=== PATIENT | male | born 2005 | race Two or more races ===

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

== ENCOUNTER 2023-10-04 18:30 | Emergency (ER) | payer MEDICAID | END 2023-10-04 18:45 | disposition left against medical advice (07) | LOC: ER 18:30 | DX: R68.84 Jaw pain (principal); Z53.21 Procedure and treatment not carried out due to patient leaving prior to being seen by health care provider ==

== ENCOUNTER 2024-05-08 20:10 | Emergency (ER) | payer MEDICAID ==
[~2024-05-08] VITALS: Ht 177.8 cm; Wt 185.0 kg
[2024-05-08] MEDS ORDERED: IBU600T PO (20:26)
[2024-05-08] MEDS ORDERED: CYCL-838 PO (20:26)
[2024-05-09 00:28] VITALS: BP 139/82; PULSE 102; RESP 18; TEMP 98.8; O2SAT 98
== END 2024-05-09 00:41 | disposition home or self-care (01) ==
LOC: ER 20:10
DX: S39.012A Strain of muscle, fascia and tendon of lower back, initial encounter (principal); R07.89 Other chest pain; F41.9 Anxiety disorder, unspecified; X58.XXXA Exposure to other specified factors, initial encounter; Y93.89 Activity, other specified; Y92.89 Other specified places as the place of occurrence of the external cause; Y99.8 Other external cause status
CPT/HCPCS: 93005

== ENCOUNTER 2024-08-12 14:34 | Emergency (ER) | payer MEDICAID ==
[~2024-08-12] VITALS: Ht 177.8 cm; Wt 75.0 kg
[~2024-08-12 14:34] MED LIST: CYCL-838 PO; IBU600T PO
[2024-08-12] MEDS: LORazepam 0.5 MG TAB PO ONE ×2 (15:00→23:50)
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
[2024-08-13] MEDS ORDERED: FLUO1TAB14 PO (01:22)
[2024-08-13] MEDS ORDERED: HYDR-3682 PO (01:22)
--- NOTE | 2024-08-13 01:25 | ED.PDOC ---
X-Ray, Labs, Meds, VS Vital Signs Date Time Temp Pulse Resp B/P (MAP) Pulse Ox O2 Delivery O2 Flow Rate FiO2 08/12/24 19:25 99.1 68 18 136/94 (108) 99 99.1 08/12/24 19:20 Room Air* 0 21 08/12/24 15:00 97.9 100 20 128/74 (92) 99 Current Medications Medications (Trade) Dose Ordered Sig/Margarito Route Start Time Stop Time Status Last Admin Lorazepam (Ativan Tablet) 1 mg ONCE ONCE PO 08/12/24 15:00 08/12/24 15:01 DC 08/12/24 15:00 Lorazepam (Ativan Tablet) 2 mg ONCE ONCE PO 08/12/24 23:45 08/12/24 23:46 DC 08/12/24 23:50 Time of 1ST Reevaluation: 17:53 Reevaluation 1ST: Unchanged Time of 2ND Reevaluation: 01:25 Reevaluation 2ND: Improved Patient Education/Counseling: Diagnosis, Treatment, Need For Follow Up Family Education/Counseling: No Family Present Departure 1 Departure Time of Disposition: 01:17 Impression: Primary Impression: Anxiety disorder, unspecified Disposition: 01 HOME / SELF CARE / HOMELESS Condition: Stable Additional Instructions: ED DISCHARGE INSTRUCTIONS Instructions: Please read all instructions provided in this packet carefully. Although you have been discharged from the Emergency Department, this does not mean that you have a "clean bill of health". No definitive diagnosis for your symptoms has been made today. It is possible that you are in the process of developing a serious illness. This is why you must return to the ED without fail if any new or worsening symptoms (especially if your symptoms include thoughts of self harm, severe anxiety, chest pain, trouble breathing, abdominal pain, fever, headache, confusion, trouble seeing, or trouble walking) It is also very important that you see a primary care doctor within the next 3-5 days to follow up. If you are unable to get an appointment, return to the ED for re-evaluation. e-Prescriptions Hydroxyzine Hcl (Hydroxyzine Hcl) 25 Mg Tab 1 TAB PO BID PRN, #30 TAB Prov: BRIDGET POP MD 08/13/24 Fluoxetine HCl (Pmdd) (Fluoxetine HCl) 20 Mg Tab 20 MG PO DAILY for 30 Days, #30 TAB Prov: BRIDGET POP MD 08/13/24 Comments Sign received from Dr. Tolliver. 18 year old male with anxiety disorder unspecified. Patient evaluated by psychiatrist Dr. Persaud. Recommendation is discharge home with prescription for fluoxetine and hydroxyzine. Establish outpatient psychiatric treatment. Resources provided to patient. Patient well appearing, non toxic, denying suicidal ideation. [place] stable for discharge home. BRIDGET POP MD Aug 13, 2024 01:25
[2024-08-13 08:00] VITALS: BP 112/63; TEMP 99.1
[2024-08-13 08:01] VITALS: PULSE 85; RESP 19; O2SAT 95
== END 2024-08-13 09:18 | disposition home or self-care (01) ==
LOC: ER 14:34 → EDBD 14:34 → ER 08-13 09:18
DX: F31.9 Bipolar disorder, unspecified (principal); F41.9 Anxiety disorder, unspecified; Z71.82 Exercise counseling